=== PATIENT | female | born 1995 | race Caucasian/White ===

== ENCOUNTER 2021-10-17 23:42 | Outpatient (CLI) | payer MEDICAID | END 2021-10-17 23:43 | disposition critical access hospital (66) | LOC: EMS 23:42 | DX: S51.812A Laceration without foreign body of left forearm, initial encounter (principal); X78.1XXA Intentional self-harm by knife, initial encounter; Y92.009 Unspecified place in unspecified non-institutional (private) residence as the place of occurrence of the external cause | CPT/HCPCS: A0425; A0429; A0999 ==

== ENCOUNTER 2021-10-18 00:03 | Emergency (ER) | payer MEDICAID ==
--- NOTE | 2021-10-18 01:20 | ED Physician Documentation ---
PD HPI UPPER EXT INJURY - Stated complaint Stated Complaint: LEFT FOREARM LAC - Chief complaint Chief Complaint: Laceration - History obtained from History obtained from: Patient - History of Present Illness Location: Left, Forearm Timing - onset: How many minutes ago (approximateyl 45 minutes CONTACT MANAGER) Recently seen: Not recently seen - Additonal information Additional information: patient presents with self-inflicted left forearm lacerations. Patient is four months post- and was feeling overwhelmed tonight and cut herself with a knife. She strongly denies suicidal intent on my HPI. She has h/o cutting but not recently until tonight. She says she felt overwhelmed and upset with her current home situation (with spouse and responsibilities of ) and that she needs "coping skills" (per patient). Patient is right hand dominant Review of Systems Skin: reports: Laceration (s) Musculoskeletal: reports: Extremity pain (limited to lacerations on left FA) Neurologic: denies: Focal weakness, Numbness Psychiatric: denies: Depressed, Suicidal, Homicidal, Hallucinations, Delusions PD PAST MEDICAL HISTORY - Past Medical History Past Medical History: Yes Psych: Depression, Anxiety - Past Surgical History Past Surgical History: No - Present Medications Home Medications: Ambulatory Orders Medication Instructions Recorded Confirmed Atenolol 50 mg PO DAILY 02/08/15 02/08/15 Diphenoxylate/Atropine [Lomotil] 1 each PO QID PRN #14 tablet 02/08/15 Norgestimate-Ethinyl Estradiol 1 tab PO DAILY 02/08/15 02/08/15 [Ortho Tri-Cyclen 28 Tablet] Ondansetron HCl [Zofran] 4 mg PO Q6HR PRN #10 ml 02/08/15 Sertraline HCl [Zoloft] 50 mg PO DAILY 02/08/15 02/08/15 - Allergies Allergies/Adverse Reactions: Allergies Allergy/AdvReac Type Severity Reaction Status Date / Time Penicillins Allergy Unknown Verified 10/18/21 00:21 - Social History Does the pt smoke?: No Smoking Status: Never smoker Does the pt drink ETOH?: No Does the pt have substance abuse?: No - Immunizations Immunizations are current?: Yes PD ED PE NORMAL - Vitals Vital signs reviewed: Yes - General General: Alert and oriented X 3, No acute distress, Well developed/nourished - Extremities Extremities: No edema - Neuro Neuro: Alert and oriented X 3, No motor deficit, No sensory deficit - Psych Psych: Normal mood, Normal affect PD ED PE EXPANDED - Extremities Extremities: Other (two linear abrasions to left forearm, flexor surface (2 and 3 cm length) and two lacerations to left forearm (2 and 3 cm length)) Results - Vitals Vitals: Oxygen O2 Source Room air Procedures - Laceration (location) Upper extremity left Ventral Length in cm: 5 (total length of the two lacerations, left forearm) Wound type: Linear, Into subcut fat Neurovascular status: Sensory intact, Motor intact, Vascular intact Tendon involvement: Tendon intact Anesthesia: Lidocaine 1% Wound preparation: Chlorhexadine, Irrigated copiously NS Skin layer closure: Nylon, Running, Size #-0 - enter number (4-0) Other: Patient tolerated well, No complications, Neurovascular intact, Dressing applied PD MEDICAL DECISION MAKING - ED course Complexity details: considered differential, d/w patient ED course: patient strongly denies suicidal intent , suicidal thoughts. After repair of the two forearm lacerations (there are also two linear abrasions but these did not require repair), I offered SW as well as telepsychiatric consult. I also offered to arrange for inpatient stay at appropriate facility if she feels she is not safe at home. She declines all of these, again stating that she is not suicidal. She says she will seek outpatient follow up , particularly for counseling (mental health). Departure - Departure Disposition: 01 Home, Self Care Clinical Impression: Laceration Condition: Good Instructions: ED Laceration Ext Sutr Stap Tape Comments: You will need the sutures (stitches) removed in 7-10 days. This can be done by your primary care provider, or else in a walk-in clinic, urgent care center, or , if necessary, any emergency department. Discharge Date/Time: 10/18/21 05:30
[2021-10-18] MEDS ORDERED: LIDOCAINE 1% 2 ML VIAL SUBQ STA (01:23)
[2021-10-18 02:15] VITALS: BP 122/82
[2021-10-18] MEDS ORDERED: BACITRACIN ZINC OINT 1 PACKET TOP STA (03:43)
== END 2021-10-18 05:30 | disposition home or self-care (01) ==
LOC: ED 00:03
DX: S51.812A Laceration without foreign body of left forearm, initial encounter (principal); W26.0XXA Contact with knife, initial encounter
CPT/HCPCS: 12002; 99283; A9270

== ENCOUNTER 2022-03-31 16:35 | Emergency (ER) | payer MEDICAID ==
[2022-03-31] MEDS ORDERED: ACETAMINOPHEN 325 MG TABLET PO STA (16:57)
--- NOTE | 2022-03-31 17:03 | ED Physician Documentation ---
PD HPI URI - Stated complaint Stated Complaint: WEAK/NECK PX - Chief complaint Chief Complaint: General - History obtained from History obtained from: Patient - History of Present Illness Timing - onset: Yesterday (She had felt ill for the past week with some mild cough congestion and myalgias. However was not in proving and then onset yesterday of fevers, nausea, aches and general weakness. Lower abd cramping and early .) Timing duration: Days (2) Timing details: Abrupt onset, Still present Associated symptoms: Fever, Chills, Dry cough, Other (muscle aches, including neck.). No: Nasal congestion, Sore throat Contributing factors: No: Sick contact, Immunocompromised Worsened by: Activity (feeling general weakness) Similar symptoms before: No diagnosis (She had milder symptoms about a week ago and was feeling improving now even worse feeling since yesterday.) Recently seen: Not recently seen Review of Systems Constitutional: reports: Fever, Chills, Myalgias, Fatigue Nose: denies: Rhinorrhea / runny nose, Congestion Throat: denies: Sore throat Cardiac: denies: Chest pain / pressure Respiratory: reports: Cough GI: reports: Abdominal Pain (mid lower abd cramping), Nausea. denies: Vomiting, Diarrhea : reports: Dysuria. denies: Frequency, Discharge Skin: denies: Rash, Lesions Neurologic: reports: Generalized weakness. denies: Near syncope PD PAST MEDICAL HISTORY - Past Medical History Cardiovascular: None Respiratory: None Neuro: None Endocrine/Autoimmune: None Psych: Depression, Anxiety - Past Surgical History Past Surgical History: No - Present Medications Home Medications: Ambulatory Orders Medication Instructions Recorded Confirmed Ondansetron Odt [Zofran] 4 mg TL Q6H PRN #10 tablet 03/31/22 No122/Iron/Folic Acid 1 tab PO DAILY 03/31/22 03/31/22 [ Multi Tablet] Pyridoxine HCl (Vitamin B6) 25 mg PO BID #30 tablet 03/31/22 [Vitamin B-6] - Allergies Allergies/Adverse Reactions: Allergies Allergy/AdvReac Type Severity Reaction Status Date / Time Penicillins Allergy Unknown Verified 03/31/22 16:55 - Social History Does the pt smoke?: No Smoking Status: Never smoker Does the pt drink ETOH?: No Does the pt have substance abuse?: No - Immunizations Immunizations are current?: Yes PD ED PE NORMAL - Vitals Vital signs reviewed: Yes - General General: Alert and oriented X 3, Well developed/nourished - HEENT HEENT: Ears normal, Moist mucous membranes, Pharynx benign - Neck Neck: Supple, no meningeal sign, No adenopathy - Cardiac Cardiac: No murmur. No: RRR (regular but tachycardic) - Respiratory Respiratory: No respiratory distress, Clear bilaterally - Abdomen Abdomen: Normal bowel sounds, Soft, Non distended, No organomegaly, Other (some tender mid to lower abd without guarding. ) - Female Female : Deferred - Rectal Rectal: Deferred - Back Back: No CVA TTP - Derm Derm: Normal color, Warm and dry - Neuro Neuro: Alert and oriented X 3, No motor deficit, Normal speech Results - Vitals Vitals: Vital Signs - 24 hr 03/31/22 16:51 Temperature 39.6 C H Heart Rate 156 H Respiratory 16 Rate Blood Pressure 135/73 H O2 Saturation 100 Oxygen O2 Source Room air - Labs Labs: Laboratory Tests 03/31/22 03/31/22 03/31/22 17:00 17:28 17:28 Sodium 134 L Potassium 3.7 Chloride 102 Carbon Dioxide 23 Anion Gap 9.0 BUN 7 Creatinine 0.6 Estimated GFR (MDRD) 119 Glucose 109 H Calcium 8.7 Total Bilirubin 0.6 AST 16 ALT 20 Alkaline Phosphatase 51 Total Protein 6.8 Albumin 3.5 Globulin 3.3 Albumin/Globulin Ratio 1.1 Lipase 30 HCG, Quant 4224.00 Nasal Adenovirus (PCR) NOT DETECTED Nasal B. parapertussis DNA (PCR) NOT DETECTED Nasal Coronavir 229E PCR NOT DETECTED Nasal Coronavir HKU1 PCR NOT DETECTED Nasal Coronavir NL63 PCR NOT DETECTED Nasal Coronavir OC43 PCR NOT DETECTED Nasal Enterovir/Rhinovir PCR NOT DETECTED Nasal Influenza B PCR NOT DETECTED Nasal Influenza A PCR NOT DETECTED Nasal Parainfluen 1 PCR NOT DETECTED Nasal Parainfluen 2 PCR NOT DETECTED Nasal Parainfluen 3 PCR NOT DETECTED Nasal Parainfluen 4 PCR NOT DETECTED Nasal RSV (PCR) NOT DETECTED Nasal B.pertussis DNA PCR NOT DETECTED Nasal C.pneumoniae (PCR) NOT DETECTED Greg Human Metapneumo PCR NOT DETECTED Nasal M.pneumoniae (PCR) NOT DETECTED Nasal SARS-CoV-2 (PCR) NOT DETECTED - Rads (name of study) pelvic OB U/S Radiology: Prelim report reviewed, See rad report PD MEDICAL DECISION MAKING - ED course Complexity details: reviewed results, considered differential (Her symptoms seem flulike. She is tachycardic and states she had poor intake today. We can give some IV fluids as well as antiemetic. She is having fevers and aches so Toradol can be appropriate and early . She does have some mid abdominal cr amping. No vaginal bleeding. Can get U/S), d/w patient Departure - Departure Clinical Impression: Acute viral syndrome, Early stage of Fever Qualifiers: Fever type: unspecified Qualified Code(s): R50.9 - Fever, unspecified Condition: Stable Record reviewed to determine appropriate education?: Yes Follow-Up: [facility] [place] [Provider Group] Prescriptions: Pyridoxine HCl (Vitamin B6) [Vitamin B-6] 25 mg PO BID #30 tablet Ondansetron Odt [Zofran] 4 mg TL Q6H PRN #10 tablet PRN Reason: Nausea / Vomiting Comments: Your viral panel is negative for influenza, COVID, RSV, several other common viruses. Your symptoms still sound flulike so I presume another virus. We do ultrasound to establish your . You can use ondansetron if needed for nausea. With the early nausea, you can use vitamin B6 twice daily as well. Tylenol every 4-6 hours if needed for fevers or pains.
[2022-03-31] MEDS ORDERED: SODIUM CHLORIDE 0.9% 1,000 ML IV STA ×2 (17:21→18:50)
[2022-03-31] MEDS ORDERED: ONDANSETRON 4 MG/2 ML VIAL IVP STA (17:21)
[2022-03-31] MEDS ORDERED: KETOROLAC 15 MG/ML VIAL IVP STA (17:21)
[2022-03-31 17:49] LABS: ALBUMIN 3.5 g/dL (3.2-5.5); ALBUMIN/GLOBULIN RATIO 1.1 (1.0-2.2); BILIRUBIN,TOTAL 0.6 mg/dL (0.2-1.0); CALCIUM 8.7 mg/dL (8.5-10.3); CREATININE 0.6 mg/dL (0.4-1.0); POTASSIUM 3.7 mmol/L (3.5-5.0); TOTAL PROTEIN 6.8 g/dL (6.7-8.2)
[2022-03-31 18:05] LABS: B. PARAPERTUSSIS- RESP PCR PAN NOT DETECTED; B. PERTUSSIS- RESP PCR PANEL NOT DETECTED; C. PNEUMONIAE- RESP PCR PANEL NOT DETECTED; CORONAVIRUS 229E-RESP PCR NOT DETECTED; CORONAVIRUS HKU1-RESP PCR NOT DETECTED; CORONAVIRUS NL63-RESP PCR NOT DETECTED; CORONAVIRUS OC43-RESP PCR NOT DETECTED; HUMAN METAPNEUMOVIRUS NOT DETECTED; INFLUENZA A- RESP PCR PANEL NOT DETECTED; INFLUENZA B - RESP PCR PANEL NOT DETECTED; M. PNEUMONIAE- RESP PCR PANEL NOT DETECTED; PARAINFLUENZA VIRUS 1 NOT DETECTED; PARAINFLUENZA VIRUS 2 NOT DETECTED; PARAINFLUENZA VIRUS 3 NOT DETECTED; PARAINFLUENZA VIRUS 4 NOT DETECTED; RHINOVIRUS/ENTEROVIRUS NOT DETECTED; RSV- RESP PCR PANEL NOT DETECTED; SARS-CoV-2 -RESP PCR PANEL NOT DETECTED
--- NOTE | 2022-03-31 19:51 | Ultrasound Report ---
PROCEDURE: OB First Trimester w/TV INDICATIONS: fever, abd cramps, early preg OUTSIDE/PRIOR DATING DATA: Last menstrual period (LMP): 02/20/2022. LMP-based estimated date of delivery (MADONNA): 11/27/2022. TECHNIQUE: Real-time scanning was performed of the fetus and maternal pelvic organs, with image documentation. Endovaginal scanning was also performed to better visualize the fetus and maternal ovaries. COMPARISON: None. FINDINGS: Embryo: Mean gestational sac diameter 0.55 cm. Estimated gestational age 5 weeks 2 days. pole is not seen at this time. Heart rate: Not applicable. Small subchorionic hemorrhage measuring 2 x 1.2 x 0.9 cm. Yolk sac is not seen. Measurement variability in dating: +/- 4 weeks by LMP, +/- 7 days by mean sac diameter (use before 6 weeks gestation if crown-rump length not able to be measured), +/- 5 days by crown-rump length (6-12 weeks gestation). Maternal organs: Ovaries are within normal limits. Left corpus luteum versus septated cyst measuring of 4.4 x 3.4 x 3.3 cm. IMPRESSION: Intrauterine gestational sac suggesting early . No pole demonstrated. Recommend short- term follow-up OB ultrasound to document the crown-rump length. Small subchorionic hemorrhage. Probable left corpus luteum. Reviewed by: John Camargo MD on 03/31/2022 7:49 PM PST Approved by: John Camargo MD on 03/31/2022 7:49 PM PST Station ID: [id number]
[2022-03-31 20:10] LABS: BILIRUBIN,URINE NEGATIVE (NEGATIVE); GLUCOSE, URINE (UA) NEGATIVE (NEGATIVE); KETONES,URINE (UA) NEGATIVE (NEGATIVE); LEUKOCYTE ESTERASE, URINE TRACE (NEGATIVE); NITRITE,URINE NEGATIVE (NEGATIVE); OCCULT BLOOD,URINE NEGATIVE (NEGATIVE); PH,URINE 7.5 PH (5.0-7.5); PROTEIN,URINE NEGATIVE (NEGATIVE); UROBILINOGEN,URINE 0.2 (NORMAL) E.U./dL (NORMAL)
[2022-03-31 20:12] LABS: CLARITY,URINE CLEAR (CLEAR)
[2022-03-31 20:20] LABS: BACTERIA,URINE Rare /HPF (None Seen); RBC,URINE None Seen /HPF (0-5); SQUAMOUS EPITHELIAL CELL,UR FEW Squamous (<= Few); WBC,URINE 0-3 /HPF (0-5)
[2022-03-31] MEDS ORDERED: CEFPODOXIME PROXETIL 100 MG TABLET PO STA (20:43)
--- NOTE | 2022-03-31 20:43 | ED Physician Documentation ---
ED Addendum - Addendum Addendum: 03/31/22 20:40 Patient was signed out to me by Dr. Durham awaiting results of her pelvic ultrasound, reevaluation after IV fluids and urinalysis results. Patient appears to have asymptomatic bacteriuria, but given that she is 5 weeks , we will place on antibiotics for this. Patient is tolerating p.o. without difficulty here. Feels much better after IV fluids. Likely viral illness. No evidence of pyelonephritis. No CVA tenderness. Abdomen is soft, nontender nondistended on serial exam. Patient is well-appearing, nontoxic. Patient counseled regarding signs and symptoms for which I believe and urgent re-evaluation would be necessary. Patient with good understanding of and agreement to plan and is comfortable going home at this time This document was made in part using voice recognition software. While efforts are made to proofread this document, sound alike and grammatical errors may occur. Departure - Departure Disposition: 01 Home, Self Care Clinical Impression: Acute viral syndrome, Early stage of Fever Qualifiers: Fever type: unspecified Qualified Code(s): R50.9 - Fever, unspecified UTI (urinary tract infection) Qualifiers: Urinary tract infection type: acute cystitis Hematuria presence: without hematuria Qualified Code(s): N30.00 - Acute cystitis without hematuria Condition: Stable Instructions: ED UTI Cystitis Female, ED Viral Syndrome Follow-Up: [facility] [Provider Group] Prescriptions: Cefpodoxime Proxetil [Vantin] 100 mg PO Q12H #10 tablet Pyridoxine HCl (Vitamin B6) [Vitamin B-6] 25 mg PO BID #30 tablet Ondansetron Odt [Zofran] 4 mg TL Q6H PRN #10 tablet PRN Reason: Nausea / Vomiting Comments: Your viral panel is negative for influenza, COVID, RSV, several other common viruses. Your symptoms still sound flulike so I presume another virus. We do ultrasound to establish your . You can use ondansetron if needed for nausea. With the early nausea, you can use vitamin B6 twice daily as well. Tylenol every 4-6 hours if needed for fevers or pains. Your prescriptions were sent to [facility] in [place] FINDINGS: Embryo: Mean gestational sac diameter 0.55 cm. Estimated gestational age 5 weeks 2 days. pole is not seen at this time. Heart rate: Not applicable. Small subchorionic hemorrhage measuring 2 x 1.2 x 0.9 cm. Yolk sac is not seen. Measurement variability in dating: +/- 4 weeks by LMP, +/- 7 days by mean sac diameter (use before 6 weeks gestation if crown-rump length not able to be measured), +/- 5 days by crown-rump length (6- 12 weeks gestation). Maternal organs: Ovaries are within normal limits. Left corpus luteum versus septated cyst measuring of 4.4 x 3.4 x 3.3 cm. IMPRESSION: Intrauterine gestational sac suggesting early . No pole demonstrated. Recommend short-term follow-up OB ultrasound to document the crown-rump length. Small subchorionic hemorrhage. Probable left corpus luteum.
[2022-03-31 21:08] VITALS: BP 134/88
== END 2022-03-31 21:07 | disposition home or self-care (01) ==
LOC: ED 16:35
DX: O98.519 Other viral diseases complicating pregnancy, unspecified trimester (principal); B34.9 Viral infection, unspecified; Z20.822 Contact with and (suspected) exposure to COVID-19; Z3A.00 Weeks of gestation of pregnancy not specified
CPT/HCPCS: 36415; 76801; 76817; 80053; 81001; 83690; 84702; 87086; 87633; 96374; 99284; A9270; 81003

== ENCOUNTER 2022-05-13 10:35 | Emergency (ER) | payer MEDICAID ==
[2022-05-13 10:52] VITALS: BP 116/77
[2022-05-13 10:57] LABS: MUDS CUTOFF CONCENTRATIONS CUTOFF CONC BELOW:
[2022-05-13 11:05] LABS: BILIRUBIN,URINE NEGATIVE (NEGATIVE); GLUCOSE, URINE (UA) NEGATIVE (NEGATIVE); KETONES,URINE (UA) NEGATIVE (NEGATIVE); LEUKOCYTE ESTERASE, URINE SMALL (NEGATIVE); NITRITE,URINE NEGATIVE (NEGATIVE); OCCULT BLOOD,URINE NEGATIVE (NEGATIVE); PH,URINE 7.5 PH (5.0-7.5); PROTEIN,URINE NEGATIVE (NEGATIVE); UROBILINOGEN,URINE 0.2 (NORMAL) E.U./dL (NORMAL)
[2022-05-13 11:06] LABS: CLARITY,URINE CLOUDY (CLEAR); HCG UR QUAL POSITIVE
[2022-05-13 11:10] LABS: AMPHETAMINE SCREEN,URINE NEGATIVE (NEGATIVE); BARBITURATE SCREEN,UR NEGATIVE (NEGATIVE); BENZODIAZEPINES SCREEN, URINE NEGATIVE (NEGATIVE); COCAINE SCREEN URINE NEGATIVE (NEGATIVE); METHADONE SCREEN, URINE NEGATIVE (NEGATIVE); METHAMPHETAMINES SCREEN, URINE NEGATIVE (NEGATIVE); OPIATE SCREEN, URINE NEGATIVE (NEGATIVE); OXYCODONE SCREEN, URINE NEGATIVE (NEGATIVE); PROPOXYPHENE SCREEN, URINE NEGATIVE (NEGATIVE); THC CANNABINOID SCREEN, URINE NEGATIVE (NEGATIVE); TRICYCLIC ANTIDEPRESSANT,URINE NEGATIVE (NEGATIVE)
[2022-05-13 11:24] LABS: BACTERIA,URINE Moderate /HPF (None Seen); RBC,URINE 0-5 /HPF (0-5); SQUAMOUS EPITHELIAL CELL,UR MOD Squamous (<= Few)
[2022-05-13 11:25] LABS: ACETAMINOPHEN < 10 ug/mL (10-30); ALBUMIN 3.8 g/dL (3.2-5.5); ALBUMIN/GLOBULIN RATIO 1.2 (1.0-2.2); ALKALINE PHOSPHATASE 42 IU/L (42-121); ALT ALANINE AMINOTRANSFERASE 33 IU/L (10-60); AST ASPARTATE AMINOTRANSFERASE 23 IU/L (10-42); BILIRUBIN,TOTAL 0.5 mg/dL (0.2-1.0); BUN - BLOOD UREA NITROGEN 11 mg/dL (6-20); CALCIUM 9.2 mg/dL (8.5-10.3); CARBON DIOXIDE - CO2 23 mmol/L (21-32); CHLORIDE 102 mmol/L (101-111); CREATININE 0.6 mg/dL (0.4-1.0); ETOH - ETHANOL < 5.0 mg/dL; GFR - MDRD 119 (>89); GLUCOSE 96 mg/dL (70-100); LIPASE 32 U/L (22-51); POTASSIUM 3.9 mmol/L (3.5-5.0); SALICYLATE < 6.0 mg/dL; SODIUM 134 mmol/L (135-145); TOTAL PROTEIN 7.1 g/dL (6.7-8.2)
[2022-05-13 11:27] LABS: BASOPHILS % (AUTO) 0.6 %; EOSINOPHILS % (AUTO) 0.6 %; HCT - HEMATOCRIT 34.4 % (37.0-47.0); HGB - HEMOGLOBIN 11.5 g/dL (12.0-16.0); LYMPHOCYTES # (AUTO) 1.4 10^3/uL (1.5-3.5); LYMPHOCYTES % (AUTO) 17.4 %; MEAN CORPUSCULAR HEMOGLOBIN 28.8 pg (27.0-31.0); MEAN CORPUSCULAR HGB CONC 33.4 g/dL (32.0-36.0); MEAN CORPUSCULAR VOLUME 86.2 fL (81.0-99.0); MONOCYTES % (AUTO) 4.6 %; NEUTROPHILS % (AUTO) 76.5 %; PLT - PLATELET COUNT 248 10^3/uL (130-450); RED BLOOD COUNT 3.99 10^6/uL (4.20-5.40); WHITE BLOOD COUNT 7.9 x10^3/uL (4.8-10.8)
[2022-05-13 11:29] LABS: MEAN PLATELET VOLUME 10.9 fL (7.9-10.8); RED CELL DISTRIBUTION WIDTH 12.8 % (12.0-15.0)
[2022-05-13 11:32] LABS: MONOCYTES # (AUTO) 5.8 10^3/uL (0.0-1.0)
[2022-05-13 11:33] LABS: BASOPHILS # (AUTO) 0.3 10^3/uL (0.0-0.1)
--- NOTE | 2022-05-13 12:11 | ED Physician Documentation ---
PD HPI MHE - Stated complaint Stated Complaint: MHE - Chief complaint Chief Complaint: MHE - History obtained from History obtained from: Patient - Additional information Additional information: Patient is a 26-year-old female G2, P1 presenting for evaluation of cutting herself and at times having suicidal thoughts. Patient reports a prior history of depression. She has a long history of cutting herself. She states she uses knives or keys but her is taken away the knives in the home. She got into an argument with her and states that they have a very argumentative marriage That he is very controlling. She then threatened to cut her self and her called 911. Patient states that she has a child at home and is and does not actually feel like she would harm herself. However she is interested in getting on medication that she can safely take in .She has been hospitalized previously but it was in her youth. She is not currently set up with any counseling services. She denies drug or alcohol use. She does report having abdominal cramping in the last couple of weeks but no vaginal bleeding. She did have an ultrasound in early March which showed an early . She is post [facility] She is unsure of her blood type. She denies chest pain or difficulty breathing. Review of Systems Constitutional: denies: Fever Cardiac: denies: Chest pain / pressure Respiratory: denies: Dyspnea GI: reports: Abdominal Pain (Intermittent cramping) : denies: Dysuria Musculoskeletal: denies: Back pain Neurologic: denies: Headache PD PAST MEDICAL HISTORY - Past Medical History Cardiovascular: None Respiratory: None Neuro: None Endocrine/Autoimmune: None Psych: Depression, Anxiety - Past Surgical History Past Surgical History: No - Present Medications Home Medications: Ambulatory Orders Medication Instructions Recorded Confirmed Cefpodoxime Proxetil [Vantin] 100 mg PO Q12H #10 tablet 03/31/22 Ondansetron Odt [Zofran] 4 mg TL Q6H PRN #10 tablet 03/31/22 No122/Iron/Folic Acid 1 tab PO DAILY 03/31/22 03/31/22 [ Multi Tablet] Pyridoxine HCl (Vitamin B6) 25 mg PO BID #30 tablet 03/31/22 [Vitamin B-6] - Allergies Allergies/Adverse Reactions: Allergies Allergy/AdvReac Type Severity Reaction Status Date / Time Penicillins Allergy Unknown Verified 03/31/22 16:55 - Social History Does the pt smoke?: No Smoking Status: Never smoker Does the pt drink ETOH?: No Does the pt have substance abuse?: No - Immunizations Immunizations are current?: Yes - POLST Patient has POLST: No PD ED PE NORMAL - General General: Alert and oriented X 3, No acute distress, Well developed/nourished - HEENT HEENT: Atraumatic - Neck Neck: Supple, no meningeal sign - Cardiac Cardiac: RRR, No murmur - Respiratory Respiratory: No respiratory distress, Clear bilaterally - Abdomen Abdomen: Soft, Non tender, Non distended - Derm Derm: Warm and dry - Extremities Extremities: Other (Multiple healed lacerations to bilateral arms, yellow bruising to both arms) - Neuro Neuro: Alert and oriented X 3, No motor deficit, Normal speech Results - Vitals Vitals: Vital Signs - 24 hr 05/13/22 10:47 Temperature 37.2 C Heart Rate 109 H Respiratory 18 Rate Blood Pressure 116/77 O2 Saturation 100 Oxygen O2 Source Room air - Labs Labs: Laboratory Tests 05/13/22 05/13/22 05/13/22 10:45 11:01 11:01 WBC 7.9 RBC 3.99 L Hgb 11.5 L Hct 34.4 L MCV 86.2 MCH 28.8 MCHC 33.4 RDW 12.8 Plt Count 248 MPV 10.9 H Neut # (Auto) 6.0 Lymph # (Auto) 1.4 L [place] # (Auto) 5.8 H Eos # (Auto) 0.0 Baso # (Auto) 0.3 H Sodium 134 L Potassium 3.9 Chloride 102 Carbon Dioxide 23 Anion Gap 9.0 BUN 11 Creatinine 0.6 Estimated GFR (MDRD) 119 Glucose 96 Calcium 9.2 Total Bilirubin 0.5 AST 23 ALT 33 Alkaline Phosphatase 42 Total Protein 7.1 Albumin 3.8 Globulin 3.3 Albumin/Globulin Ratio 1.2 Lipase 32 TSH HCG, Quant Urine Color YELLOW Urine Clarity CLOUDY Urine pH 7.5 Ur Specific [place] 1.015 Urine Protein NEGATIVE Urine Glucose (UA) NEGATIVE Urine Ketones NEGATIVE Urine Occult Blood NEGATIVE Urine Nitrite NEGATIVE Urine Bilirubin NEGATIVE Urine Urobilinogen 0.2 (NORMAL) Ur Leukocyte Esterase SMALL H Urine RBC 0-5 Urine WBC 4-5 Ur Squamous Epith Cells MOD Squamous H Urine Bacteria Moderate H Ur Microscopic Review INDICATED Urine Culture Comments NOT INDICATED Urine HCG, Qual POSITIVE Salicylates < 6.0 Urine Opiates Screen NEGATIVE Ur Oxycodone Screen NEGATIVE Urine Methadone Screen NEGATIVE Ur Propoxyphene Screen NEGATIVE Acetaminophen < 10 L Ur Barbiturates Screen NEGATIVE Ur Tricyclics Screen NEGATIVE Ur Phencyclidine Scrn NEGATIVE Ur Amphetamine Screen NEGATIVE U Methamphetamines Scrn NEGATIVE U Benzodiazepines Scrn NEGATIVE Urine Cocaine Screen NEGATIVE U Cannabinoids Screen NEGATIVE Ethyl Alcohol < 5.0 SARS-CoV-2 (PCR) Blood Type 05/13/22 05/13/22 05/13/22 11:01 11:01 11:01 WBC RBC Hgb Hct MCV MCH MCHC RDW Plt Count MPV Neut # (Auto) Lymph # (Auto) [place] # (Auto) Eos # (Auto) Baso # (Auto) Sodium Potassium Chloride Carbon Dioxide Anion Gap BUN Creatinine Estimated GFR (MDRD) Glucose Calcium Total Bilirubin AST ALT Alkaline Phosphatase Total Protein Albumin Globulin Albumin/Globulin Ratio Lipase TSH 0.41 HCG, Quant 653358.00 Urine Color Urine Clarity Urine pH Ur Specific [place] Urine Protein Urine Glucose (UA) Urine Ketones Urine Occult Blood Urine Nitrite Urine Bilirubin Urine Urobilinogen Ur Leukocyte Esterase Urine RBC Urine WBC Ur Squamous Epith Cells Urine Bacteria Ur Microscopic Review Urine Culture Comments Urine HCG, Qual Salicylates Urine Opiates Screen Ur Oxycodone Screen Urine Methadone Screen Ur Propoxyphene Screen Acetaminophen Ur Barbiturates Screen Ur Tricyclics Screen Ur Phencyclidine Scrn Ur Amphetamine Screen U Methamphetamines Scrn U Benzodiazepines Scrn Urine Cocaine Screen U Cannabinoids Screen Ethyl Alcohol SARS-CoV-2 (PCR) NOT DETECTED Blood Type 05/13/22 12:51 WBC RBC Hgb Hct MCV MCH MCHC RDW Plt Count MPV Neut # (Auto) Lymph # (Auto) [place] # (Auto) Eos # (Auto) Baso # (Auto) Sodium Potassium Chloride Carbon Dioxide Anion Gap BUN Creatinine Estimated GFR (MDRD) Glucose Calcium Total Bilirubin AST ALT Alkaline Phosphatase Total Protein Albumin Globulin Albumin/Globulin Ratio Lipase TSH HCG, Quant Urine Color Urine Clarity Urine pH Ur Specific [place] Urine Protein Urine Glucose (UA) Urine Ketones Urine Occult Blood Urine Nitrite Urine Bilirubin Urine Urobilinogen Ur Leukocyte Esterase Urine RBC Urine WBC Ur Squamous Epith Cells Urine Bacteria Ur Microscopic Review Urine Culture Comments Urine HCG, Qual Salicylates Urine Opiates Screen Ur Oxycodone Screen Urine Methadone Screen Ur Propoxyphene Screen Acetaminophen Ur Barbiturates Screen Ur Tricyclics Screen Ur Phencyclidine Scrn Ur Amphetamine Screen U Methamphetamines Scrn U Benzodiazepines Scrn Urine Cocaine Screen U Cannabinoids Screen Ethyl Alcohol SARS-CoV-2 (PCR) Blood Type A POSITIVE PD Medical Decision Making - ED course Complexity details: reviewed results, re-evaluated patient ED course: Pt presented for evaluation after argument with and recent cutting behavior. Denies SI. She is and says she would never hurt herself. 1st trimester US reviewed with no acute findings. She was medically cleared and seen by [facility]. She does not require hospitalization at this time and given resources for outpatient support. She is going to go directly to the [facility] as they are waiting for her as she had a scheduled first appointment there today and will discuss medication options with provider there for her anxiety. Return precautions given. Departure - Departure Disposition: 01 Home, Self Care Clinical Impression: Depression, First trimester Condition: Stable Instructions: ED Depression Comments: Please [facility] as they are expecting you for your appointment.I would recommend reaching out to your provider there To discuss medication options that are safe in for your symptoms. Please make sure to also utilize the resources given to by social work. If at anytime you have any concerning symptoms such as Feeling suicidal, Of heavy vaginal bleeding or pain and then please return to the emergency department. Discharge Date/Time: 05/13/22 14:33
--- NOTE | 2022-05-13 12:48 | Ultrasound Report ---
PROCEDURE: OB First Trimester INDICATIONS: cramping/early preg TECHNIQUE: Real-time scanning was performed of the fetus and maternal pelvic organs, with image documentation. COMPARISON: 03/31/2022 FINDINGS: There is a single living intrauterine gestation with mean gestational sac diameter of 5.4 cm and crown-rump length of 4.9 cm. Composite gestational age is 11 weeks five days. heart rate 164 bpm. Normal closed cervix. Anterior placenta normal in appearance. IMPRESSION: Single living intrauterine gestation, estimated gestational age 11 weeks five days. Reviewed by: David Mcneil MD on 05/13/2022 12:46 PM PST Approved by: David Mcneil MD on 05/13/2022 12:46 PM PST Station ID: [id number]
== END 2022-05-13 14:33 | disposition home or self-care (01) ==
LOC: EDUNIT# → ED 10:35
DX: O99.341 Other mental disorders complicating pregnancy, first trimester (principal); Z3A.11 11 weeks gestation of pregnancy
CPT/HCPCS: 36415; 80053; 80306; 80307; 80320; 80329; 81001; 81003; 81025; 83690; 84443; 84702; 85025; 86900; 86901; 87086; 99283

== ENCOUNTER 2022-06-11 11:14 | Outpatient (CLI) | payer MEDICAID ==
[2022-06-11 16:35] LABS: BILIRUBIN,URINE NEGATIVE (NEGATIVE); GLUCOSE, URINE (UA) NEGATIVE (NEGATIVE); KETONES,URINE (UA) NEGATIVE (NEGATIVE); LEUKOCYTE ESTERASE, URINE NEGATIVE (NEGATIVE); NITRITE,URINE NEGATIVE (NEGATIVE); OCCULT BLOOD,URINE NEGATIVE (NEGATIVE); PH,URINE 6.5 PH (5.0-7.5); PROTEIN,URINE NEGATIVE (NEGATIVE); UROBILINOGEN,URINE 0.2 (NORMAL) E.U./dL (NORMAL)
[2022-06-11 16:36] LABS: CLARITY,URINE CLEAR (CLEAR)
[2022-06-11 16:56] LABS: BACTERIA,URINE Few /HPF (None Seen); RBC,URINE None Seen /HPF (0-5); SQUAMOUS EPITHELIAL CELL,UR MOD Squamous (<= Few); WBC,URINE 0-3 /HPF (0-5)
[2022-06-12 01:36] LABS: CHLAMYDIA TRACHOMATIS DNA NEGATIVE (NEGATIVE); NEISSERIA GONORRHOEAE DNA NEGATIVE (NEGATIVE); TRICHOMONAS VAGINALIS DNA NEGATIVE (NEGATIVE)
== END 2022-06-11 23:59 | disposition home or self-care (01) ==
LOC: LAB.WC 11:14
PROVIDERS: ATTEND Obstetrics & Gynecology
DX: Z34.00 Encounter for supervision of normal first pregnancy, unspecified trimester (principal)
CPT/HCPCS: 81001; 87086; 87491; 87591; 87661

== ENCOUNTER 2022-06-11 11:57 | Outpatient (CLI) | payer MEDICAID ==
[2022-06-11 12:24] LABS: BASOPHILS % (AUTO) 0.4 %; EOSINOPHILS # (AUTO) 0.1 10^3/uL (0.0-0.7); EOSINOPHILS % (AUTO) 1.1 %; HCT - HEMATOCRIT 34.2 % (37.0-47.0); HGB - HEMOGLOBIN 11.2 g/dL (12.0-16.0); LYMPHOCYTES # (AUTO) 1.6 10^3/uL (1.5-3.5); LYMPHOCYTES % (AUTO) 21.1 %; MEAN CORPUSCULAR HEMOGLOBIN 28.7 pg (27.0-31.0); MEAN CORPUSCULAR HGB CONC 32.7 g/dL (32.0-36.0); MEAN CORPUSCULAR VOLUME 87.7 fL (81.0-99.0); MEAN PLATELET VOLUME 10.8 fL (7.9-10.8); MONOCYTES # (AUTO) 0.3 10^3/uL (0.0-1.0); MONOCYTES % (AUTO) 3.7 %; NEUTROPHILS # (AUTO) 5.4 10^3/uL (1.5-6.6); NEUTROPHILS % (AUTO) 73.4 %; PLT - PLATELET COUNT 271 10^3/uL (130-450); WHITE BLOOD COUNT 7.3 x10^3/uL (4.8-10.8)
[2022-06-12 06:10] LABS: RPR Non Reactive (Non Reactive)
[2022-06-12 07:09] LABS: HBsAG SCREEN Negative (Negative)
[2022-06-12 11:11] LABS: VARICELLA-ZOSTER AB IGG <135 index (Immune >165)
[2022-06-13 03:09] LABS: HCV AB Non Reactive (Non Reactive); HIV SCREEN 4TH GENERATION Non Reactive (Non Reactive)
== END 2022-06-11 11:58 | disposition home or self-care (01) ==
LOC: LAB 11:57
PROVIDERS: ATTEND Obstetrics & Gynecology
DX: Z34.00 Encounter for supervision of normal first pregnancy, unspecified trimester (principal)
CPT/HCPCS: 36415; 81599; 82105; 85025; 86592; 86762; 86787; 86803; 86850; 86900; 86901; 87340; 87389

== ENCOUNTER 2022-07-12 11:53 | Outpatient (CLI) | payer MEDICAID ==
--- NOTE | 2022-07-12 15:16 | Ultrasound Report ---
PROCEDURE: OB Detailed Eval INDICATIONS: SUPERVISION,NORMAL ,PRIMIGRAVIDA OUTSIDE/PRIOR DATING DATA: Last menstrual period (LMP): February 20, 2022. LMP-based estimated date of delivery (MADONNA): 11/27/2022. First dating scan (date and location): 03/31/2022. Estimated date of delivery (MADONNA) from first dating scan: 11/29/2022. The below data below was generated using the clinical MADONNA of 11/27/2022 TECHNIQUE: Real-time scanning was performed of the fetus, with image documentation and biometric measurements. COMPARISON: March 31, 2022, May 13, 2022 General: A single living intrauterine gestation is present. Presentation: Breech Placenta: Placental position is anterior, without previa. Amniotic fluid index: 13.3 cm, normal for gestational age. heart rate: 150 beats per minute. Maternal cervical canal: 5.3 cm long; normal length is 2.5 cm or more. biometrics: Biparietal diameter: 4.3 cm Head circumference: 16.7 cm Abdominal circumference: 14.5 cm Femur length: 3.1 cm Estimated gestational age from initial scan: not applicable. Composite gestational age from present scan: 20 weeks 2 days Estimated weight and percentile: 309 g, 18 percentile Measurement variability in biometric dating: +/- 10 days from 12-20 weeks gestation, +/- 2 weeks from 20-30 weeks gestation, +/- 3 weeks at 30 weeks gestation or later. Anatomic survey: Neuro: Ventricles are normal at less than 10 mm. Cisterna magna is normal at 3-11 mm. Cerebellum i s normal in size and morphology. Nuchal skin fold: Normal at less than 6 mm between 14 and 20 weeks gestational age. Face: Nose and lips, facial profile are normal. Spine: No evidence for spina bifida. Heart: 4-chambered heart is present, with normal ventricular outflow tracts. Diaphragm: Diaphragm is intact. Stomach: Left-sided stomach is present. Kidneys: No hydronephrosis. Normal is less than 5 mm in 2nd trimester, less than 7 mm in 3rd trimester. Cord: 3 vessel cord has orthotopic insertion. Bladder: Normal in size. Extremities: All 4 extremities are visualized. IMPRESSION: Normal anatomy scan without anatomic abnormality identified. Estimated weight of 309g, 18th percentile. Reviewed by: Valentin Mcneil MD on 07/12/2022 2:14 PM AKRAMBO Approved by: Valentin Mcneil MD on 07/12/2022 2:14 PM AKRAMBO Station ID: [id number]
== END 2022-07-12 11:54 | disposition home or self-care (01) ==
LOC: DI 11:53
PROVIDERS: ATTEND Obstetrics & Gynecology
DX: Z34.02 Encounter for supervision of normal first pregnancy, second trimester (principal)

== ENCOUNTER 2022-09-03 08:00 | Outpatient (CLI) | payer MEDICAID ==
[2022-09-03 16:31] LABS: BILIRUBIN,URINE NEGATIVE (NEGATIVE); GLUCOSE, URINE (UA) NEGATIVE (NEGATIVE); KETONES,URINE (UA) NEGATIVE (NEGATIVE); LEUKOCYTE ESTERASE, URINE NEGATIVE (NEGATIVE); NITRITE,URINE NEGATIVE (NEGATIVE); OCCULT BLOOD,URINE NEGATIVE (NEGATIVE); PH,URINE 6.5 PH (5.0-7.5); PROTEIN,URINE NEGATIVE (NEGATIVE); UROBILINOGEN,URINE 0.2 (NORMAL) E.U./dL (NORMAL)
[2022-09-03 16:40] LABS: BACTERIA,URINE Rare /HPF (None Seen); CLARITY,URINE CLEAR (CLEAR); RBC,URINE 0-5 /HPF (0-5); SQUAMOUS EPITHELIAL CELL,UR FEW Squamous (<= Few); WBC,URINE 0-3 /HPF (0-5)
== END 2022-09-03 23:59 | disposition home or self-care (01) ==
LOC: LAB.WC 08:00
PROVIDERS: ATTEND Obstetrics & Gynecology
DX: R10.9 Unspecified abdominal pain (principal)
CPT/HCPCS: 81001; 87086

== ENCOUNTER 2022-09-10 14:04 | Outpatient (CLI) | payer MEDICAID ==
[2022-09-10 15:09] LABS: HCT - HEMATOCRIT 34.1 % (37.0-47.0); HGB - HEMOGLOBIN 11.2 g/dL (12.0-16.0); MEAN CORPUSCULAR HEMOGLOBIN 29.8 pg (27.0-31.0); MEAN CORPUSCULAR HGB CONC 32.8 g/dL (32.0-36.0); MEAN CORPUSCULAR VOLUME 90.7 fL (81.0-99.0); MEAN PLATELET VOLUME 10.8 fL (7.9-10.8); RED BLOOD COUNT 3.76 10^6/uL (4.20-5.40); RED CELL DISTRIBUTION WIDTH 13.8 % (12.0-15.0); WHITE BLOOD COUNT 10.3 x10^3/uL (4.8-10.8)
== END 2022-09-10 14:05 | disposition home or self-care (01) ==
LOC: LAB 14:04
PROVIDERS: ATTEND Obstetrics & Gynecology
DX: O09.92 Supervision of high risk pregnancy, unspecified, second trimester (principal); Z36.89 Encounter for other specified antenatal screening
CPT/HCPCS: 36415; 82950; 85027

== ENCOUNTER 2022-09-15 09:06 | Outpatient (CLI) | payer MEDICAID ==
[2022-09-15 09:36] LABS: GTT GLUCOSE,FASTING 97 mg/dL (70-100)
== END 2022-09-15 09:07 | disposition home or self-care (01) ==
LOC: LAB 09:06
PROVIDERS: ATTEND Obstetrics & Gynecology
DX: O99.810 Abnormal glucose complicating pregnancy (principal)
CPT/HCPCS: 36415; 82951; 82952

== ENCOUNTER 2022-10-29 08:00 | Outpatient (CLI) | payer MEDICAID | END 2022-10-29 23:59 | disposition home or self-care (01) | LOC: LAB.WC 08:00 | PROVIDERS: ATTEND Obstetrics & Gynecology | DX: O09.93 Supervision of high risk pregnancy, unspecified, third trimester (principal); Z3A.35 35 weeks gestation of pregnancy | CPT/HCPCS: 87081; 87797 ==

== ENCOUNTER 2022-11-23 21:51 | Inpatient (IN) | payer MEDICAID ==
[2022-11-23] MEDS ORDERED: OXYTOCIN 10 UNIT/ML VIAL IM PRN (23:43)
[2022-11-23] MEDS ORDERED: miSOPROStoL 200 MCG TABLET PR PRN (23:43)
[2022-11-23] MEDS ORDERED: hydrALAZINE INJ 20 MG/ML VIAL IVP PRN ×2 (23:43)
[2022-11-23] MEDS ORDERED: LACTATED RINGERS 1,000 ML IV PRN (23:43)
[2022-11-23] MEDS ORDERED: SODIUM CHLORIDE FLUSH 0.9% 10 ML SYRINGE IVP PRN (23:43)
[2022-11-23] MEDS ORDERED: OXYTOCIN/SODIUM CHLORIDE 500 ML IV PRN (23:43)
[2022-11-23] MEDS ORDERED: TERBUTALINE 1 MG/ML VIAL SUBQ PRN (23:43)
[2022-11-23] MEDS ORDERED: miSOPROStoL 200 MCG TABLET BC PRN (23:43)
[2022-11-23] MEDS ORDERED: lidocaine 1% 20 ML MDV ID PRN (23:43)
[2022-11-23] MEDS ORDERED: METHYLERGONOVINE 0.2 MG/ML VIAL IM PRN (23:43)
[2022-11-23] MEDS ORDERED: fentaNYL 100 MCG/2 ML VIAL IVP PRN (23:43)
[2022-11-23] MEDS ORDERED: TRANEXAMIC ACID IN NACL 1,000 MG/100 ML BAG IV PRN (23:43)
[2022-11-23] MEDS ORDERED: CARBOPROST TROMETHAMINE 250 MCG/ML AMP IM PRN (23:43)
[2022-11-23] MEDS ORDERED: NIFEdipine 10 MG CAPSULE PO PRN (23:43)
[2022-11-23] MEDS ORDERED: LABETALOL 20 MG/4 ML SYRINGE IVP PRN ×3 (23:43)
[2022-11-23] MEDS ORDERED: SODIUM CHLORIDE FLUSH 0.9% 10 ML SYRINGE IVP SCH (23:45)
[2022-11-24 00:17] LABS: BASOPHILS # (AUTO) 0.1 10^3/uL (0.0-0.1); BASOPHILS % (AUTO) 0.5 %; EOSINOPHILS # (AUTO) 0.1 10^3/uL (0.0-0.7); EOSINOPHILS % (AUTO) 1.1 %; HCT - HEMATOCRIT 39.8 % (37.0-47.0); HGB - HEMOGLOBIN 12.9 g/dL (12.0-16.0); LYMPHOCYTES # (AUTO) 2.5 10^3/uL (1.5-3.5); LYMPHOCYTES % (AUTO) 24.3 %; MEAN CORPUSCULAR HEMOGLOBIN 29.3 pg (27.0-31.0); MEAN CORPUSCULAR HGB CONC 32.4 g/dL (32.0-36.0); MEAN CORPUSCULAR VOLUME 90.2 fL (81.0-99.0); MEAN PLATELET VOLUME 12.7 fL (7.9-10.8); MONOCYTES # (AUTO) 0.6 10^3/uL (0.0-1.0); MONOCYTES % (AUTO) 5.9 %; NEUTROPHILS # (AUTO) 6.9 10^3/uL (1.5-6.6); NEUTROPHILS % (AUTO) 67.9 %; PLT - PLATELET COUNT 205 10^3/uL (130-450); RED BLOOD COUNT 4.41 10^6/uL (4.20-5.40); RED CELL DISTRIBUTION WIDTH 14.2 % (12.0-15.0); WHITE BLOOD COUNT 10.2 x10^3/uL (4.8-10.8)
[2022-11-24] MEDS ORDERED: OXYTOCIN 10 UNIT/ML VIAL ONE (00:26)
[2022-11-24] MEDS ORDERED: OXYTOCIN/SODIUM CHLORIDE 500 ML IV ONE (00:27)
[2022-11-24] MEDS ORDERED: TRANEXAMIC ACID IN NACL 0 MG/0 ML BAG IV ONE (00:27)
[2022-11-24] MEDS ORDERED: HYDROCORTISONE 1% CREAM 28 GM TUBE PR PRN (00:49)
[2022-11-24] MEDS ORDERED: WITCH HAZEL/GLYCERIN 1 PAD TOP PRN (00:49)
--- NOTE | 2022-11-24 00:58 | HISTORY & PHYSICAL EXAMINATION ---
Admit History - Visit Reason Visit Reason: Contractions - : 2 Parity: 1 Care: positive: [facility] Smoking Status: Never smoker - Mother's Labs Mother's Blood Type: positive: A Mother's RH: positive: Positive GBS: positive: Group B Step Negative Rubella Status: positive: Immune - Other Maternal History Other Maternal History: Med: Depression, anxiety Surg: None Fam: Father with Graves Social: , denies teofilo, homemaker - HPI Diagnosis/Indication for NST: Decreased movement - NST Procedure EFM: 140s, moderate variability, positive 15x15 accelerations, no decelerations [place]: contractions q4m NST reactive/Cat 1 Performed and read 11/23/22 - Results and Plan Plan: SVE repeated and 5cm, patient admitted in active labor Meds/Allgy - Home Medications Home Medications: Ambulatory Orders Medication Instructions Recorded Confirmed Cefpodoxime Proxetil [Vantin] 100 mg PO Q12H #10 tablet 03/31/22 Ondansetron Odt [Zofran] 4 mg TL Q6H PRN #10 tablet 03/31/22 No122/Iron/Folic Acid 1 tab PO DAILY 03/31/22 03/31/22 [ Multi Tablet] Pyridoxine HCl (Vitamin B6) 25 mg PO BID #30 tablet 03/31/22 [Vitamin B-6] - Allergies Allergies/Adverse Reactions: Allergies Allergy/AdvReac Type Severity Reaction Status Date / Time Penicillins Allergy Unknown Verified 03/31/22 16:55 Review of Systems - All Other Systems All Other Systems: reports: Reviewed and negative Physical - Abdominal Exam Contraction Frequency (min/apart): 4 Contraction Intensity: positive: Mild to moderate Uterine Resting Tone: positive: Soft - Monitoring Heart Rate Baseline: 140 Strip Review: positive: Category I - Presentation Presentation: positive: Breech (3000, placenta anterior) - Vaginal Exam Membranes: positive: Membranes intact Dilation (in cm): 5 Plan for Labor - Plan For Labor I expect patient to be DC'd or transferred within 96 hours.: Yes Plan for Labor: 27yo at 39.3 by 6w US admitted 11/23/22 in active labor - Initially presented with decreased FM and also contractions. SVE per RN 1cm. Patient was planning to go home but then contractions were more painful. SVE repeated and 5cm per RN. As I was on my way to [facility], notified that patient SROM (clear) and breech with feet presenting. See delivery note for breech delivery. - complicated depression, anxiety will monitor mood. - CBC, T&S were drawn - 11/24/22, routine care
[2022-11-24] MEDS ORDERED: LACTATED RINGERS 1,000 ML IV SCH (01:00)
--- NOTE | 2022-11-24 01:22 | DELIVERY NOTE ---
Delivery Note - Labor Labor: positive: Spontaneous - Delivery Method Delivery Method: positive: Spontaneous vaginal delivery - Presentation Presentation: positive: Breech - Nuchal Cord Nuchal Cord: positive: Present - Amniotic Fluid Description Amniotic Fluid Description: positive: Clear - Laceration Laceration: positive: 1st degree (Not repaired not bleeding) - Delivery Outcome Delivery Outcome: positive: Livebirth - [place] : positive: Placed in direct skin contact with mother, Bulb syringe, Stimulated, Warmed, [place] used - Cord Cord: positive: 3 vessels - Placenta Placenta: positive: Intact, Spontaneous - Estimated Blood Loss Estimated Blood Loss (in cc): 50 - Delivery Comments (Free Text/Narrative) Delivery Comments (Free Text/Narrative): 27yo at 39.3 by 6w US admitted 11/23/22 in active labor. Initially presented with decreased FM and also contractions. SVE per RN 1cm, patient appeared comfortable. Patient was planning to go home but then contractions were more painful. SVE repeated and 5cm per RN. As I was on my way to [facility], notified that patient SROM (clear) and breech with feet presenting. She was cephalic recent OB visits and at 11/10/22 US 2w ago at 37.4w. On my presentation double footling breech noted with feet at introitus. Legs delivered. The buttocks were palpated and delivered gradually. Once the scapula could be seen the baby was gently rotated and both arms were delivered using the [place] maneuver. Head flexion was maintained and head delivered. placed on mother's abdomen. Cord clamped and cut. Vagina and perieum inspected- 1st degree laceration noted but not repaired as she was not bleeding. Explained to patient and she agrees as she was uncomfortable with no epidural. Fundus firm. Placenta delivered spontaneously and intact, 3vc. After pediatric evaluation baby in mothers arms and bonding.
[2022-11-24] MEDS ORDERED: VARICELLA VACCINE LIVE/PF 1,350 UNIT/0.5 ML VIAL SUBQ ONE (01:30)
[2022-11-24] MEDS: IBUPROFEN 800 MG TABLET PO SCH ×4 (01:41→20:42)
[2022-11-24] MEDS: ACETAMINOPHEN 500 MG TABLET PO SCH ×3 (01:42→18:30)
[2022-11-24] MEDS: DOCUSATE SODIUM 100 MG CAPSULE PO SCH ×2 (09:00→20:42)
[2022-11-25] MEDS: ACETAMINOPHEN 500 MG TABLET PO SCH ×2 (02:34→12:41)
[2022-11-25] MEDS: IBUPROFEN 800 MG TABLET PO SCH ×2 (02:34→08:15)
[2022-11-25 03:37] VITALS: BP 102/78
[2022-11-25] MEDS: DOCUSATE SODIUM 100 MG CAPSULE PO SCH (08:15)
--- NOTE | 2022-11-25 09:17 | Discharge Plan ---
Discharge Plan Problem Reviewed?: Yes Disposition: Home, Self Care Condition: Good Diet: Regular Activity Restrictions: No Restrictions Shower Restrictions: No Weight Bearing: Full Weight Instruction Topics: Vaginal After, Depression , Additional Instructions or Follow Up instructions: 12/03 1300 No Smoking: If you smoke, Please STOP! Call for help. Follow-up with: Pramod Jackman MD [Primary Care Provider] -
--- NOTE | 2022-11-25 13:37 | Labor Flowsheet ---
Labor Flowsheet Datetime Report Generated by CPN: 11/25/2022 13:37 Datetime: 11/25/2022 09:16 VITAL SIGNS NBP Sys/Sosa/Mean (mmHg): 111 : 71 : 81 Pulse: 97 Datetime: 11/24/2022 02:26 Stage of : Datetime: 11/24/2022 02:19 Vital Sign Comments: Pt in BR, BP cuff not on arm Datetime: 11/24/2022 02:01 Respirations: 18 Datetime: 11/24/2022 01:58 Membranes Ruptured Date/Time: 11/24/2022 00:10 Datetime: 11/24/2022 01:46 PAIN Pain Scale: 4 Pain Presence: Constant Pain Goal: 3 Pain Relief Measures: Pain Medication Given Datetime: 11/24/2022 01:31 Pain Type: Cramping (Annotations: sore) Pain Location: Abdomen; Perineum Datetime: 11/24/2022 00:50 Temperature (C): 36.9 Temperature Route: Oral Datetime: 11/24/2022 00:25 Patient Care Comments: placenta out Datetime: 11/24/2022 00:24 MEDICATIONS Medication Comments: PP pitocin wide open Datetime: 11/24/2022 00:20 UTERINE ACTIVITY Monitor Mode: External Frequency (min): 1-2 Quality: Strong Duration (sec): 40-60 Pattern: Tachysystole: > 5 Contractions in 10 Minutes Resting Tone (Palpate): Relaxed Contraction Comments: no pitocin induction/augmentation. Natural tachysystole ASSESSMENT A Monitor Mode: External US Decelerations: Variable; Prolonged Actions for Decelerations: IV Bolus; Sterile Vaginal Exam; Provider Notified Category: Category II Comments: periodic elva decel x1, episodic elva decel x1, prolonged decel from [id number] FHR 80-90 x 40 sec, 50 sec gap, FHR 70-80 x10 sec, 80 sec gap, FHR 70-60 over 20 sec, 10 sec gap, FHR 55 over 8 s ec, gap x 15 sec, FHR 75,55,70 over 15 sec, EFM doubling noted 170-180 over 5 sec, 100 over 5 sec, 60 , 90, 110, 100 over 10 sec, 20 sec ket796 x 5 sec, 60 sec gap, FHR 125, 120 over 8 sec, 55 sec gap, FHR 120-125 x 5 sec and delivery Datetime: 11/24/2022 00:18 COMMUNICATION Communication: Call/Page Placed to Provider Communication Comments: Med/Surg PEDIATRICS PHYSICIAN contacting OR team providers. This RN called back to IT SUPPORT MANAGER req uesting she expedite due to breech positioning per DrHosseinabyatwan request Datetime: 11/24/2022 00:16 Vaginal Exam Comments: legs slowly emerging. Datetime: 11/24/2022 00:13 PATIENT CARE IV/Blood Work: IV Bolus Started; New IV Bag Hung Datetime: 11/24/2022 00:10 Membranes Rupture Method: Spontaneous Amniotic Fluid Color: Clear Amniotic Fluid Amount: Large Amniotic Fluid Odor: Normal ANESTHESIA Anesthesia Plans: Epidural Anesthesia Comments: Nyla Larsen CRNA in route for epidural per patient request Datetime: 11/23/2022 23:50 Patient Position/Activity: Left Lateral; Semi-Fowlers Datetime: 11/23/2022 23:42 Provider Notified (Name): Dr Deshpande Notification Reason: Labor Status SBAR Notable Communications: Notified SVE 5, 90, -3. Requested to admit pt and get epidural LUTHER. Admit orders received, may have epidural LUTHER LaborFlag: OB Triage Datetime: 11/23/2022 22:24 VAGINAL EXAM Dilatation (cm): 1.0 Effacement (%): 70 Station: -3 Exam by: Juan C Barlow RN Membrane Status: Bulging Vaginal Bleeding: None Cervix, Consistency: Moderate Cervix, Position: Posterior
--- NOTE | 2022-11-25 18:54 | DISCHARGE SUMMARY ---
Discharge Summary Admit Date: 11/24/22 Discharge Date: 11/25/22 Discharging Provider: Christine Deshpande DO Code Status: Attempt Resuscitation Condition at Discharge: Good Discharge Disposition: 01 Home, Self Care Discharge Facility Name: [facility] - DIAGNOSES Admission Diagnoses: Active labor Double footling breech Precipitous delivery - HPI History of Present Illness: 27yo at 39.3w admitted in active labor. Precipitously delivered double footling breech position. - HOSPITAL COURSE Hospital Course: 27yo at 39.3w admitted in active labor. Precipitously delivered double footling breech position. Initially 1cm then rechecked at 5cm. SROM and precipitous delivery in breech position. She recovered well and was ready to go home PPD#1. Appropriate lochia. Voiding. well. Mood is good. Report history of depression, but feels her current circumstances are much better. care, , depression reviewed. F ollow up in . - ALLERGIES Allergies/Adverse Reactions: Allergies Allergy/AdvReac Type Severity Reaction Status Date / Time Penicillins Allergy Unknown Verified 03/31/22 16:55 - MEDICATIONS Home Medications: Ambulatory Orders Medication Instructions Recorded Confirmed Cefpodoxime Proxetil [Vantin] 100 mg PO Q12H #10 tablet 03/31/22 Ondansetron Odt [Zofran] 4 mg TL Q6H PRN #10 tablet 03/31/22 No122/Iron/Folic Acid 1 tab PO DAILY 03/31/22 03/31/22 [ Multi Tablet] Pyridoxine HCl (Vitamin B6) 25 mg PO BID #30 tablet 03/31/22 [Vitamin B-6] - PHYSICAL EXAM AT DISCHARGE General Appearance: positive: No acute distress Eyes Bilateral: positive: EOMI Respiratory: positive: No respiratory distress Abdomen: positive: Non-tender Skin: positive: Color nml Extremities: positive: Non-tender Neurologic/Psychiatric: positive: Oriented x3 - LABS Result Diagrams: 11/24/22 00:05 - QUALITY (Female Hip Fx Only) Was patient sent home on osteoporosis medication?: No - FOLLOW UP Follow Up: 12/03/22 1300 - TIME SPENT Time Spent in Discharge (Minutes): 25
== END 2022-11-25 13:30 | disposition home or self-care (01) | DRG 807 ==
LOC: WFO 21:51 → FBP 21:54 → WFO 23:42 → UNDOFXCLIACCOM 23:43 → FBP 23:43
PROVIDERS: ADMIT Obstetrics & Gynecology; ATTEND Obstetrics & Gynecology
PROC: 10E0XZZ Delivery of Products of Conception, External Approach (ICD-10-PCS; principal; 2022-11-24)
DX: O32.8XX0 Maternal care for other malpresentation of fetus, not applicable or unspecified (principal); Z37.0 Single live birth; Z3A.39 39 weeks gestation of pregnancy; O70.0 First degree perineal laceration during delivery; O62.3 Precipitate labor; O99.344 Other mental disorders complicating childbirth; F41.9 Anxiety disorder, unspecified; F32.A Depression, unspecified
CPT/HCPCS: 59025; 85025; 86850; 86900; 86901; 90716; 99215; A9270; J7120

== ENCOUNTER 2023-10-03 09:44 | Observation (INO) | payer MEDICAID ==
[2023-10-03 10:06] LABS: BASOPHILS # (AUTO) 0.1 10^3/uL (0.0-0.1); BASOPHILS % (AUTO) 1.1 %; EOSINOPHILS % (AUTO) 0.6 %; HCT - HEMATOCRIT 40.6 % (37.0-47.0); HGB - HEMOGLOBIN 13.1 g/dL (12.0-16.0); LYMPHOCYTES % (AUTO) 18.9 %; MEAN CORPUSCULAR HEMOGLOBIN 28.2 pg (27.0-31.0); MEAN CORPUSCULAR HGB CONC 32.3 g/dL (32.0-36.0); MEAN CORPUSCULAR VOLUME 87.3 fL (81.0-99.0); MEAN PLATELET VOLUME 10.9 fL (7.9-10.8); MONOCYTES # (AUTO) 0.2 10^3/uL (0.0-1.0); MONOCYTES % (AUTO) 4.1 %; NEUTROPHILS # (AUTO) 4.1 10^3/uL (1.5-6.6); NEUTROPHILS % (AUTO) 75.1 %; PLT - PLATELET COUNT 257 10^3/uL (130-450); RED BLOOD COUNT 4.65 10^6/uL (4.20-5.40); WHITE BLOOD COUNT 5.4 x10^3/uL (4.8-10.8)
[2023-10-03] MEDS: SODIUM CHLORIDE 0.9% 1,000 ML IV STA (10:19)
--- NOTE | 2023-10-03 10:19 | ED Physician Documentation ---
PD HPI FOCAL NEURO - Stated complaint Stated Complaint: PERSISTENT DIZZINESS - Chief complaint Chief Complaint: Neuro - History obtained from History obtained from: Patient, Family - Additional information Additional information: Since yesterday evening she has had intermittent vertigo. Like she is spinning. It is worse when she is upright or turns her head. No associated headache, vision changes, or focal weakness, numbness, tingling, clumsiness with it. She is never had vertigo before. No ear symptoms. When she is upright it is worse and she also feels like her heart is racing when she has it. PD PAST MEDICAL HISTORY - Past Medical History Cardiovascular: None Respiratory: None Neuro: None Endocrine/Autoimmune: None Psych: Depression, Anxiety - Past Surgical History Past Surgical History: No - Present Medications Home Medications: Ambulatory Orders Medication Instructions Recorded Confirmed Cefpodoxime Proxetil [Vantin] 100 mg PO Q12H #10 tablet 03/31/22 Ondansetron Odt [Zofran] 4 mg TL Q6H PRN #10 tablet 03/31/22 No122/Iron/Folic Acid 1 tab PO DAILY 03/31/22 03/31/22 [ Multi Tablet] Pyridoxine HCl (Vitamin B6) 25 mg PO BID #30 tablet 03/31/22 [Vitamin B-6] - Allergies Allergies/Adverse Reactions: Allergies Allergy/AdvReac Type Severity Reaction Status Date / Time Penicillins Allergy Unknown Verified 10/03/23 09:52 - Social History Does the pt smoke?: No Smoking Status: Never smoker Does the pt drink ETOH?: No Does the pt have substance abuse?: No - Immunizations Immunizations are current?: Yes - POLST Patient has POLST: No PD ED PE NORMAL - Vitals Vital signs reviewed: Yes - General General: Alert and oriented X 3, No acute distress - HEENT HEENT: PERRL, EOMI, Other (No nystagmus at rest but she is not symptomatic on initial evaluation.) - Neck Neck: Supple, no meningeal sign, No bony TTP - Cardiac Cardiac: RRR, No murmur - Respiratory Respiratory: No respiratory distress, Clear bilaterally - Neuro Neuro: Alert and oriented X 3, arts therapist 2-12 intact, No motor deficit, No sensory deficit, Normal speech, Other (Normal zykeqs-er-evoj and mskb-za-ueaf testing, positive [place]-Hallpike maneuver, no truncal ataxia) Eye Opening: Spontaneous Motor: Obeys Commands Verbal: Oriented GCS Score: 15 - Psych Psych: Normal mood, Normal affect NIHSS - Time Time: 10:15 - Level of Consciousness Level of consciousness: (0) Alert, Keenly responsive LOC Questions: (0) Answers both Q's correct LOC Commands: (0) Performs both correctly - Gaze Best Gaze: (0) Normal - Visual Visual: (0) No loss - Facial Palsy Facial Palsy: (0) Normal, symmetrical movement - Motor Arms (both separate) Motor Arm (right): (0) No drift Motor Arm (left): (0) No drift - Motor Legs (both separate) Motor Leg (right): (0) No drift Motor Leg (left): (0) No drift - Limb Ataxia Limb Ataxia: (0) Absent - Sensory Sensory: (0) Normal - Best Language Best Language: (0) No aphasia - Dysarthria Dysarthria: (0) Normal - Extinction and Inattention (formally neg Extinction and inattention: (0) No abnormality - Total Score/Results Total Score/Result: 0 Results - Vitals Vitals: Vital Signs - 24 hr 10/03/23 10/03/23 10/03/23 09:47 10:12 12:26 Temperature 35.7 C L Heart Rate 146 H 106 H 90 Respiratory 18 18 Rate Blood Pressure 119/74 131/100 H O2 Saturation 100 100 Oxygen O2 Source Room air - EKG (time done) 1002 EKG releavant findings:: EKG personally interpreted by author of this note. Relevant findings are: Rate: Rate (enter#) (95) Rhythm: NSR [place]: Normal Intervals: Normal OK QRS: Normal Ischemia: Normal ST segments - Labs Labs: Laboratory Tests 10/03/23 10/03/23 10/03/23 10:02 10:02 10:05 WBC 5.4 RBC 4.65 Hgb 13.1 Hct 40.6 MCV 87.3 MCH 28.2 MCHC 32.3 RDW 12.0 Plt Count 257 MPV 10.9 H Neut # (Auto) 4.1 Lymph # (Auto) 1.0 L [place] # (Auto) 0.2 Eos # (Auto) 0.0 Baso # (Auto) 0.1 Absolute Nucleated RBC 0.00 Nucleated RBC % 0.0 Sodium 136 Potassium 3.6 Chloride 105 Carbon Dioxide 21 Anion Gap 10.0 BUN 12 Creatinine 0.7 Estimated GFR (MDRD) 99 Glucose 135 H POC Whole Bld Glucose 103 H Calcium 9.8 Total Bilirubin 0.5 AST 13 ALT 13 Alkaline Phosphatase 51 Troponin I High Sens < 2.3 L Total Protein 7.5 Albumin 4.7 Globulin 2.8 Albumin/Globulin Ratio 1.7 Lipase 20 - Rads (name of study) CTA/CT of the head were negative Relevant Findings:: Final report received, EMP independent interpretation of test PD Medical Decision Making - ED course ED course: 27-year-old woman presents with vertigo starting around 6 PM last night. Sudden onset. It is worse when she is upright or if she turns her head which is more consistent with a peripheral cause. She was administered first dose of Ativan and then followed by meclizine and that was not really helpful. After that she was sleepy but still vertiginous, I got her up to walk her she clearly had some ataxia with walking which did not seem present when she was laying flat. Note made that no MRI is available today and she was sent for CT. The CTs were negative and she still had no relief in her symptoms so spoke with Dr. Alan for observation at 1:51 PM. Note that even if this was a CVA she is not a thrombolytic candidate due to the timeframe, she arrived well after the 12-hour daniel. Departure - Departure Disposition: ED Place in Observation Clinical Impression: Vertigo Condition: Stable Forms: PCP List
[2023-10-03] MEDS: LORazepam 2 MG/ML VIAL IVP STA (10:30)
[2023-10-03 10:33] LABS: ALBUMIN 4.7 g/dL (3.2-5.5); ALBUMIN/GLOBULIN RATIO 1.7 (1.0-2.2); ALKALINE PHOSPHATASE 51 IU/L (42-121); ALT ALANINE AMINOTRANSFERASE 13 IU/L (10-60); AST ASPARTATE AMINOTRANSFERASE 13 IU/L (10-42); BILIRUBIN,TOTAL 0.5 mg/dL (0.2-1.0); BUN - BLOOD UREA NITROGEN 12 mg/dL (6-20); CALCIUM 9.8 mg/dL (8.5-10.3); CARBON DIOXIDE - CO2 21 mmol/L (21-32); CHLORIDE 105 mmol/L (101-111); CREATININE 0.7 mg/dL (0.6-1.3); GFR - MDRD 99 (>89); GLUCOSE 135 mg/dL (74-104); LIPASE 20 U/L (11-82); POTASSIUM 3.6 mmol/L (3.5-4.5); SODIUM 136 mmol/L (135-145); TOTAL PROTEIN 7.5 g/dL (6.4-8.9)
[2023-10-03 10:36] LABS: TROPONIN I HIGH SENSITIVITY < 2.3 ng/L (2.3-14.8)
[2023-10-03] MEDS: MECLIZINE 12.5 MG TABLET PO STA (11:23)
[2023-10-03] MEDS ORDERED: iohexoL-300 100 ML VIAL ONE (12:32)
[2023-10-03] MEDS: iohexoL-300 100 ML VIAL IVP ONE (12:53)
--- NOTE | 2023-10-03 13:33 | CT Report ---
PROCEDURE: Head WO INDICATIONS: vertigo TECHNIQUE: Noncontrast 4.5 mm thick angled axial sections acquired from the foramen magnum to the vertex. For r adiation dose reduction, the following was used: automated exposure control, adjustment of mA and/or kV according to patient size. COMPARISON: None. FINDINGS: Image quality: Excellent. CSF spaces: Basal cisterns are patent. No extra-axial fluid collections. Ventricles are normal in size and shape. Brain: No midline shift. No intracranial masses or hemorrhage. Klein-white matter interface is norm al. Skull and face: Calvarium and visualized facial bones are intact, without suspicious lesions. Sinuses: Mucous retention cyst or mucosal thickening at the right maxillary sinus. Visualized sinuse s and mastoids are otherwise clear. IMPRESSION: No acute intracranial pathology. Reviewed by: John Camargo MD on 10/03/2023 1:32 PM PDT Approved by: John Camargo MD on 10/03/2023 1:32 PM PDT Station ID: [id number]
--- NOTE | 2023-10-03 13:39 | CT Report ---
PROCEDURE: Angio Head/Neck INDICATIONS: vertigo TECHNIQUE: After the administration of intravenous contrast, 1 mm thick sections acquired from the aortic arch t hrough the [place] of [place]. 3-dimensional pxjyxyi-ecrenxqlv-oqxdyfdvnw (MIP) and/or volume renderin g reformats were acquired of the central intracranial vasculature and neck separately. For radiation dose reduction, the following was used: automated exposure control, adjustment of mA and/or kV acco rding to patient size. CONTRAST: 80ml omni 300 COMPARISON: Same day noncontrast head CT. FINDINGS: Image quality: Diagnostic. HEAD CT: CSF Spaces: Basal cisterns are patent. No extra-axial fluid collections. Ventricles are normal in size and shape. Brain: No significant abnormality is seen for scanning technique. Skull and face: Calvarium and visualized facial bones appear intact, without suspicious lesions. Sinuses: Mucosal thickening or mucous retention cyst in the right maxillary sinus. Visualized sinuse s and mastoids are otherwise clear. HEAD CT ANGIOGRAPHY: Anterior circulation: Intracranial internal carotid arteries are normal in size and flow. The flow within the paired anterior cerebral arteries is normal and symmetric. The flow within the middle cer ebral arteries is normal and symmetric. The anterior communicating artery is seen. Left posterior t o indicating artery is seen. No aneurysms are seen. Posterior circulation: Visualized portions of the vertebral arteries demonstrate normal caliber, and join to form a normal appearing basilar artery. Flow within the posterior cerebral arteries is norm al and symmetric. No aneurysms are seen. NECK CT ANGIOGRAPHY: Carotid system: The great vessels demonstrate a conventional anatomy as they arise from the aortic a rch. The origins of the common carotid arteries appear patent. The common carotid arteries demonstr ate normal caliber and courses. The bifurcation regions are both widely patent. The internal caroti d arteries demonstrate normal calibers and courses. Posterior circulation: The origins of the vertebral arteries both appear widely patent. The more collado perior extracranial portions of both vertebral arteries also demonstrate normal courses and calibers. They join to form a normal appearing basilar artery. Soft tissues: Visualized neck soft tissues demonstrate no suspicious abnormalities. Bones: No suspicious bony lesions. Visualized cervical spine appears normally aligned. IMPRESSION: No significant intracranial arterial abnormality is seen. No significant abnormality is seen within the arteries of the neck. The estimate of stenosis included in the report of the imaging study was calculated using the NASCET method Reviewed by: John Camargo MD on 10/03/2023 1:37 PM PDT Approved by: John Camargo MD on 10/03/2023 1:37 PM PDT Station ID: [id number]
[2023-10-03] MEDS ORDERED: SODIUM CHLORIDE FLUSH 0.9% 10 ML SYRINGE IVP PRN (13:53)
[2023-10-03] MEDS ORDERED: oxyCODONE 5 MG TABLET PO PRN (13:53)
[2023-10-03] MEDS ORDERED: ACETAMINOPHEN 325 MG TABLET PO PRN (13:53)
[2023-10-03] MEDS ORDERED: MECLIZINE 12.5 MG TABLET PO PRN (13:59)
[2023-10-03] MEDS ORDERED: LORazepam 1 MG TABLET PO PRN (13:59)
--- NOTE | 2023-10-03 14:38 | HISTORY & PHYSICAL EXAMINATION ---
Chief Complaint - Chief Complaint Chief Complaint: dizziness History of Present Illness - Admitted From Admitted From:: Dr Thompson, ED - History Obtained From Records Reviewed: ED chart History obtained from: Patient and - History of Present Illness HPI Comment/Other: 27-year-old female who was in her usual state of health until about 6 PM yesterday. She realized quite suddenly that she was dizzy and she could not walk straight. She Tolerated the symptoms, went to bed slept well. Woke up this morning with the same symptoms. She has been feeling well recently. She has not had any cough, cold, or upper respiratory infections. She does notice some palpitations with her dizziness. She has had nausea but no vomiting. She is cu rrently on her menstrual period. It is a normal period for her. She has had a headache for the last few days but she has not had any tinnitus. She describes this headache as a rather mild frontal discomfort. She has not had any numbness or tingling in her extremities she does not have any focal weakness in her extremities but she has trouble with her balance when she is trying to walk. She did take medications of Benadryl for allergies yesterday as well as some ibuprofen and Tylenol for her menstrual symptoms. She normally takes no medications.She does not have a primary care provider. History - Past Medical History Cardiovascular: reports: None Respiratory: reports: None Neuro: reports: None, Headaches (occasional headaches that are self limited. Thinks she gets about one "migraine" per year. This is a headache that is accompanied by difficulties in coordination of fine motor skills. ) Endocrine/Autoimmune: reports: None GI: reports: None DENTAL CERAMIST ASSISTANT: reports: None : reports: None, Other (LMP 6/7) Psych: reports: Depression, Anxiety (remote history of cutting as a teenager. this is not a problem now. ) Musculoskeletal: reports: None MRSA Hx?: No - Past Surgical History /DENTAL CERAMIST ASSISTANT: reports: Other (2 . ) HEENT: denies: Myringotomy (tubes), Tonsil/Adenoidectomy - Family & Social History Family History: Mother: Alive and Well, Diabetes, Type 2, Father: Alive and Well, CAD Family History Comment/Other: Dad with Grave's disease. Mom with Celiac disease Living arrangement: At home Living Situation: With spouse/s.o., With family (2children, ages 2 and 10 mo. 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 - Substance History Use: Uses substance without health or social issues: NONE Abuse: Recurrent use of substance despite neg consequences: NONE Dependence: Experiences withdrawal or developed tolerances: NONE - POLST Patient has POLST: No POLST Status: Full Code Meds/Allgy - Home Medications Home Medications: Ambulatory Orders Medication Instructions Recorded Confirmed Acetaminophen [Tylenol] 1,000 mg PO QID PRN 10/03/23 10/03/23 Doxylamine Succinate [Unisom] 25 mg PO QPM PRN 10/03/23 10/03/23 Ibuprofen [Advil] 400 mg PO QID PRN 10/03/23 10/03/23 diphenhydrAMINE [Benadryl] 25 - 50 mg PO Q6H PRN 10/03/23 10/03/23 - Allergies Allergies/Adverse Reactions: Allergies Allergy/AdvReac Type Severity Reaction Status Date / Time Penicillins Allergy Unknown Verified 10/03/23 09:52 Review of Systems - Constitutional Constitutional: denies: Fatigue, Fever, Malaise, Weakness - Eyes Eyes: reports: Blurred vision. denies: Pain, Spots in vision, Dipolpia - Ears, Nose & Throat Ears, Nose & Throat: reports: Vertigo. denies: Ear pain, Tinnitus, Sore throat, Hoarseness - Cardiovascular Cariovascular: reports: Palpitations (gets palpitations when her dizziness gets worse) - Respiratory Respiratory: denies: Cough, SOB at rest, SOB with exertion - Gastrointestinal Gastrointestinal: reports: Nausea. denies: Abdominal pain, Vomiting - Genitourinary Genitourinary: denies: Dysuria - Musculoskeletal Musculoskeletal: denies: Muscle pain, Back pain, Muscle aches - Integumentary Integumentary: denies: Rash - Neurological Neurological: reports: General weakness, Headache (see HPI), Abnormal gait, Incoordination. denies: Focal weakness, Memory problems, Seizures, Slurred speech - Psychiatric Psychiatric: reports: Other (remote history of anxiety and self harm behavior. She is doing well now.). denies: Depression, Anxiety - Endocrine Endocrine: denies: Polyuria, Polydypsia - Hematologic/Lymphatic Hematologic/Lymphatic: reports: Anemia - All Other Systems All Other Systems: reports: Reviewed and negative Prior Level of Functionality: active and capable mom who cares for 2 young children. Exam - Vital Signs Vital Signs: Vital Signs x48h Temp Pulse Resp BP Pulse Ox 10/03/23 14:09 99 18 128/91 H 100 10/03/23 12:26 90 18 131/100 H 100 10/03/23 10:12 106 H 10/03/23 09:47 35.7 C L 146 H 18 119/74 100 - Physical Exam General Appearance: positive: No acute distress, Alert Eyes Bilateral: positive: Normal inspection, PERRL, EOMI, No scleral icterus ENT: positive: ENT inspection nml, Pharynx nml, No signs of dehydration. negative: Pharyngeal erythema, Dry mucous membranes Neck: positive: Nml inspection, Trachea midline. negative: Thyromegaly, Lymphadenopathy (R), Lymphadenopathy (L), Stiff neck Respiratory: positive: Chest non-tender, No respiratory distress, Breath sounds nml Cardiovascular: positive: Tachycardia (no murmur) Peripheral Pulses: positive: 2+ Abdomen: positive: Non-tender Skin: positive: Color nml Extremities: positive: Non-tender, Full ROM, No pedal edema. negative: Joint swelling Neurologic/Psychiatric: positive: Oriented x3, CN's nml (2-12), Motor nml, Sensation nml, Other (gait extremely ataxic. not able to stand upright without support. she has no focal weakness. She has intact heel to bowden and intact finger to nose. there is no pronator drift. there is no nystagmus on demonstration of EOM.) Reflexes: Knee (R): 1+, Knee (L): 1+ Conclusion/Plan - Problem List (1) Vertigo Conclusion/Plan: Likely benign positional vertigo. In the emergency department she has remained ataxic with vertigo symptoms. She has failed to improve with administration of Ativan. She has improved slightly with administration of meclizine but remains quite ataxic. Imaging shows an EKG which is normal at a rate of 95. CT of the head negative. CTA of the head and neck negative. There are no electrolyte disturbances, there is no anemia. I have reviewed the results of her CBC and CMP. Although she has ataxia on standing. She does not have any nystagmus on exam. She does not have any cerebellar signs when testing heel-bowden and finger-nose. Symptoms have been present for greater than 6 hours at the time of presentation, therefore any acute intervention for CVA which is not detected on CT would not be indicated. Therefore we will admit her for further evaluation and treatment of her vertigo. This is an observation admission. I will control this patient's symptoms with meclizine and Ativan as needed. I have ordered MRI of the head with and without contrast in the a.m. to rule out CVA or space-occupying lesion. (2) Tachycardia Conclusion/Plan: Tachycardia to 146 at the time of arrival in the emergency department. This was when her vertigo was quite severe. However at rest she remains in the low 100s. She is otherwise hemodynamically normal without significant hypertension or hypotension. Her oxygen saturations are within normal limits. It is likely that her tachycardia is related to anxiety from her vertigo symptoms. She has a past family history of thyroid disease Graves' disease in her father. Her mother does not have thyroid disease but there is second-degree relatives on her mother's side with thyroid disease. She has not had any hair or skin changes. She does not have any heat or cold intolerance. I will send TSH with a.m. labs. - Lab Results Fish Bones: 10/03/23 10:02 10/03/23 10:02 - Diagnostic Imaging Results Diagnostic Imaging Results: positive: Final report reviewed Diagnostic Imaging Results Comments: CT and CTA of the head and neck, reports reviewed. - EKG Results EKG Interpreted Independently: No
--- NOTE | 2023-10-03 15:06 | PHARMACY PROGRESS NOTE ---
- Best Possible Medication History Admit Date and Time: 10/03/23 3834 Processed by: Pharmacy Medications reviewed in ED?: No Medication History completed: Yes Patient Interview: Pt interview ONLY source As the person ultimately responsible for medication therapy, providers are able to order a medication from an existing home medication list in [facility] via the "Reconcile Routine" prior to Confirmation of that medication by systems support specialist. Such practice is discouraged except when the physician, in their clinical judgment, deems that a medical need exists for a medication without regard to previous use.
[2023-10-03] MEDS: SODIUM CHLORIDE FLUSH 0.9% 10 ML SYRINGE IVP SCH (16:25)
[2023-10-03] MEDS: ONDANSETRON 4 MG/2 ML VIAL IVP PRN (18:18)
[2023-10-04] MEDS: ONDANSETRON ODT 4 MG TABLET TL PRN (08:29)
[2023-10-04] MEDS ORDERED: GADOTERATE MEGLUMINE 7.5 MMOL/15 ML VIAL ONE (09:35)
--- NOTE | 2023-10-04 11:53 | MRI Report ---
PROCEDURE: Brain W/WO INDICATIONS: new severe vertigo, no nystagmus CONTRAST: 12.6ml clariascan TECHNIQUE: Noncontrast axial T1 spin echo, axial T2 fast spin echo, sagittal and axial FLAIR, coronal T2 fast sp in echo, axial gradient echo, axial diffusion and ADC through the brain. After the administration of contrast, axial and coronal T1 spin echo with fat saturation through the brain. COMPARISON: CT head and CT angiogram of the head and neck dated 10/03/2023 FINDINGS: Image quality: Excellent. CSF spaces: Basal cisterns are patent. No extra-axial fluid collections. Ventricles are normal in size and shape. Brain: No midline shift. No intracranial bleeds or masses. No abnormal intracranial enhancement. There is cerebral volume loss for age. There is periventricular white matter chronic small vessel is chemic change. The brainstem appears normal. Diffusion-weighted images demonstrate no acute ischemi c insults. No chronic ischemic insults. Normal intravascular flow voids are present. Skull and face: Calvarial marrow is normal in signal. Orbits appear normal. Sinuses: Sinuses and mastoids appear clear. IMPRESSION: Unremarkable brain MRI with and without contrast. No acute intracranial process. Reviewed by: Corey Nieto MD on 10/04/2023 11:51 AM PDT Approved by: Corey Nieto MD on 10/04/2023 11:51 AM PDT Station ID: [id number]
--- NOTE | 2023-10-04 12:09 | Discharge Plan ---
Discharge Plan Problem Reviewed?: Yes Disposition: Home, Self Care Condition: Good Prescriptions: Meclizine [Antivert] 12.5 mg PO Q6HR PRN #30 tab PRN Reason: Dizziness Ondansetron Odt [Zofran Odt] 4 mg TL Q6HR PRN #20 tab PRN Reason: Nausea / Vomiting Diet: Regular Activity Restrictions: No Restrictions Shower Restrictions: No Driving Restrictions: Yes (do not drive if you are dizzy) Weight Bearing: Full Weight Instruction Topics: Balance System Inner Ear, Dizziness Vertigo Inner Ear, Dizziness Vertigo Balance Safety Health Concerns: You came into the hospital because you had been dizzy for almost 24 hours. Your heart rate was also elevated, and you had nausea. It is most likely that this was due to benign positional vertigo. After resting overnight and getting medication she seems to be much improved. The testing that you had includes an MRI of your brain which did not show any lesions or things of concern. You also had CAT scans of your head both with and without IV contrast to look for things like brain tumors or aneurysms. Luckily these are all negative It looks like what you have is benign positional vertigo. Your heart rate was probably elevated due to both anxiety related to this condition and the dizziness itself. Due to your elevated heart rate and your family history of problems with the thyroid I did check to make sure that your thyroid is functioning well. Your thyroid-stimulating hormone level is normal. Other health concerns that came up while you are are here are about your food allergies. While these are not things that we need to handle while you are in the hospital, it would be a good idea to check in with a healthcare provider and see if something can be done about these food allergies. This seems somewhat related to the fact that your mother has celiac disease. It is possible that you have severe food allergies. [place] [facility] has clinics in [place] and in [place] I would encourage you to make contact with them. They do take your health insurance. Additionally we have given you resources for physical therapy to help with vertigo. If your symptoms go away and come back then there is no need to pursue this treatment, however, if the symptoms are recurrent it would be a good idea to see a physical therapist about your vertigo. Plan of Treatment: Meclizine and Zofran as needed for symptoms. Do not drive while dizzy. Care Goals: Relief of dizziness. Take good care of yourself. Make sure you are getting enough rest and enough fluids. Make sure you are eating well Assessment: Benign positional vertigo Additional Instructions or Follow Up instructions: Establish care with a primary care provider. There are [facility] clincs that take your insurance, if that is your desire. Follow-Up Care: Outpatient Rehab - PT No Smoking: If you smoke, Please STOP! Call for help.
[2023-10-04 12:12] VITALS: BP 133/76; O2SAT 98
--- NOTE | 2023-10-04 12:28 | DISCHARGE SUMMARY ---
Discharge Summary Admit Date: 10/03/23 Discharge Date: 10/04/23 Condition at Discharge: Good Discharge Disposition: 01 Home, Self Care - DIAGNOSES Admission Diagnoses: Vertigo Tachycardia Discharge Diagnoses with Status of Each Condition: Vertigo. Resolved. Workup included CT of the head which was negative CTA of the head which was negative MRI of the brain with and without contrast which was negative Symptoms improved overnight with administration of p.o. meclizine and p.o. Zofr an. Patient required observation admission due to need for MRI. MRI was obtained as patient's exam was not completely consistent with benign positional vertigo. Tachycardia. Resolved. Heart rate elevated to 146. Likely related to anxiety associated with her vertigo symptoms. Resolved without treatment. - HPI History of Present Illness: 27-year-old female who was in her usual state of health until about 6 PM yesterday. She realized quite suddenly that she was dizzy and she could not walk straight. She Tolerated the symptoms, went to bed slept well. Woke up this morning with the same symptoms. She has been feeling well recently. She has not had any cough, cold, or upper respiratory infections. She does notice some palpitations with her dizziness. She has had nausea but no vomiting. She is currently on her menstrual period. It is a normal period for her. She has had a headache for the last few days but she has not had any tinnitus. She describes this headache as a rather mild frontal discomfort. She has not had any numbness or tingling in her extremities she does not have any focal weakness in her ext remities but she has trouble with her balance when she is trying to walk. She did take medications of Benadryl for allergies yesterday as well as some ibuprofen and Tylenol for her menstrual symptoms. She normally takes no medications.She does not have a primary care provider. - HOSPITAL COURSE Hospital Course: Admitted from the emergency department with an approximately 20-hour history of dizziness and ataxia failed to improve with administration of Ativan improved slightly with meclizine. She does not have any nystagmus on examination. Workup in the ED included an EKG which was normal sinus rhythm rate of 95 CT of the head and CTA of the head and neck which were negative. There were no electrolyte disturbances. MRI was not available and she was therefore admitted overnight for control of her symptoms and to obtain MRI in the morning to rule out CVA or space-occupying lesion. Her symptoms improved overnight With regards to her tachycardia she was tachycardic to 146 at the time of arrival in the emergency department. At that time she was having extreme vertigo symptoms with ataxia. Her heart rate improved somewhat but she remained in the low 100s that evening. She has a family history of hyperthyroidism, Graves' disease in her father. We did perform TSH testing which was negative. Her tachycardia resolved by the morning. Upon questioning by nutritional services she did admit to some food allergy symptoms with irritation in her mouth and on her skin. She does not have a primary care provider. [place] was instructed [place] This will be an issue to be followed up in the outpatient environment. - ALLERGIES Allergies/Adverse Reactions: Allergies Allergy/AdvReac Type Severity Reaction Status Date / Time chocolate Allergy Hives Verified 10/04/23 13:14 Fruit Allergy Hives Verified 10/04/23 13:15 legumes Allergy Hives Verified 10/04/23 13:13 nut - unspecified Allergy Hives Verified 10/04/23 13:14 Penicillins Allergy Hives Verified 10/04/23 13:15 - MEDICATIONS Home Medications: Ambulatory Orders Medication Instructions Recorded Confirmed Acetaminophen [Tylenol] 1,000 mg PO QID PRN 10/03/23 10/03/23 Ibuprofen [Advil] 400 mg PO QID PRN 10/03/23 10/03/23 diphenhydrAMINE [Benadryl] 25 - 50 mg PO Q6H PRN 10/03/23 10/03/23 Meclizine [Antivert] 12.5 mg PO Q6HR PRN #30 tab 10/04/23 Ondansetron Odt [Zofran Odt] 4 mg TL Q6HR PRN #20 tab 10/04/23 - PHYSICAL EXAM AT DISCHARGE General Appearance: positive: No acute distress, Alert Eyes Bilateral: positive: Normal inspection, PERRL, EOMI, Conjunctivae nml ENT: positive: ENT inspection nml Neck: positive: Nml inspection Respiratory: positive: Chest non-tender Cardiovascular: positive: Regular rate & rhythm Abdomen: positive: No distention Back: positive: Nml inspection Skin: positive: Color nml Extremities: positive: Non-tender, No pedal edema Neurologic/Psychiatric: positive: Oriented x3, CN's nml (2-12), Motor nml, Mood/affect nml - LABS Result Diagrams: 10/03/23 10:02 10/03/23 10:02 - DIAGNOSTIC IMAGING Diagnostic Imaging Results: Final report reviewed Diagnostic Imaging Results Comments: reviewed CT, CTA and MRI reports - FOLLOW UP Follow Up: Pt was encouraged to obtain a PCP, either through [facility] or otherwise. - TIME SPENT Time Spent in Discharge (Minutes): 25
[2023-10-04] MEDS: GADOTERATE MEGLUMINE 7.5 MMOL/15 ML VIAL IVP ONE (13:08)
== END 2023-10-04 13:28 | disposition home or self-care (01) ==
LOC: ED 09:44 → MS2 13:52
PROVIDERS: ADMIT Physician Assistant Medical; ATTEND Physician Assistant Medical
DX: R42 Dizziness and giddiness (principal); R00.0 Tachycardia, unspecified; F41.9 Anxiety disorder, unspecified; R00.2 Palpitations; R11.0 Nausea; R51.9 Headache, unspecified; R27.0 Ataxia, unspecified; F32.A Depression, unspecified; Z82.49 Family history of ischemic heart disease and other diseases of the circulatory system; Z83.3 Family history of diabetes mellitus; Z83.49 Family history of other endocrine, nutritional and metabolic diseases; Z83.79 Family history of other diseases of the digestive system; Z88.0 Allergy status to penicillin; Z91.52 Personal history of nonsuicidal self-harm
CPT/HCPCS: 36415; 70450; 70496; 70498; 70553; 80053; 83690; 84443; 84484; 85025; 93005; 96374; 96375; 97161; 99285; A9270; G0378; J2060; Q0162; Q9967